=== PATIENT | male | born 1970 | race Caucasian/White ===

== ENCOUNTER 2025-02-04 14:26 | Inpatient (IN) ==
--- NOTE | 2025-02-04 14:29 | Emergency Department Note ---
Impression & Plan AMS (altered mental status), Wernicke encephalopathy ED Provider Note NAME: NOLVIA DE SANTIAGO AGE: 54 SEX: M : 1970 ARRIVES VIA: Ambulance INFORMANT: [Patient][, ] ED PROVIDER(S): [Uziel Torres MD] CHIEF COMPLAINT: Altered mental status, concern for alcohol withdrawal MEDICAL DECISION MAKING: Patient presents due to concern for intermittent confusion. Concerned about the possibility of Warnicke's encephalopathy. IV was established and blood work was obtained. Patient's blood work is grossly unremarkable. Did make a suggestion that patient stay in hospital for further treatment although the patient gives a reasonable reason for why this occurred today including he has been on numerous medications including sedatives and he was abruptly asked certain questions that he did not know the answer to. Patient is awake alert following commands. Known history of anxiety induced tremors. Blood work shows a normal white count hemoglobin of 13.3 with a normal platelet count kidney function is unremarkable. Ammonia negative [id number] sugar [address] head and chest x-ray are unremarkable. I did speak the on-call hospitalist service and the patient was admitted to medicine service. Discussion w/ other healthcare providers: ED case management Dr. Carbajal inpatient medicine service Prior /Outside records reviewed: I reviewed part of a primary care visit from September 2024 w/ Dr. Ni. Patient with a known history of anxiety depression anxiety related tremor hypertension retinal disorder and sleep disturbance. Differential diagnosis: Infection, dehydration, metabolic abnormality, hypo/hyperglycemia, electrolyte imbalance, anemia, UTI, pneumonia, thyroid dysfunction among others were considered. Diagnostics, as interpreted by me: ECG: Normal sinus rhythm, rate 68, normal intervals, normal axis no ST elevations. Cardiac monitoring: An order was placed for continuous cardiac monitoring. The monitor shows a rate of 69 with sinus rhythm. [Patient was placed on pulse oximetry] Medical decision rules: [none] Imaging studies: [I informally interpreted the patient's chest x-ray does not show obvious pneumonia with formal report to follow.] [] HPI: Patient presents from [facility] due to concerns for increasing tremors and confusion. There was concern about possible alcohol withdrawal. The patient states that he drank 2 beers on Thursday but has been at [facility] since Thursday. He denies any alcohol tobacco or drug use since the time that he presented there. He states that he did fall about 3 months ago but not during the time that he was at [facility]. Reportedly he was having some hallucinations seeing things for staff as well as for EMS and route. No sugar was checked prior to arrival. EMS reported that he was seeing some sort of woman sitting next to him and route. Patient reportedly does have a history of tremors. He states that his had them for about 10 or 15 years but may be worse within the last year. States that he does have a follow-up with Dr. Ni next week. PAST MEDICAL HISTORY: [See Below] PAST SURGICAL HISTORY: [See Below] SOCIAL HISTORY: [See Below] HOME MEDICATIONS: [See Below] ALLERGIES: [See Below] VITALS: [See Below] PHYSICAL EXAMINATION: GENERAL: NAD, non-toxic. EYE EXAM: Normal conjunctiva. PERRL, no anisocoria and EOM's grossly intact w/o pain. OROPHARYNX: Moist mucus membranes, grossly normal dentition. NECK: Trachea midline, no stridor. LUNGS: Clear to auscultation. Normal chest wall mechanics. HEART: NSR, no MRG. ABDOMEN: Abdomen soft, non-tender, no masses, no rebound or guarding. BACK: No CVA TTP. SKIN: No rashes and no bruising. UPPER EXTREMITIES: Upper extremities are grossly normal. LOWER EXTREMITIES: Grossly normal, no edema. NEURO EXAM: Awake and alert, follows commands, no obvious facial asymmetry, normal speech, moves all 4 extremities. Oriented to person place and time. Past Med/Surg History Problem List (Updated 02/05/25 @ 14:16 by Uziel Torres MD) Wernicke encephalopathy (Acute) ETOH abuse AMS (altered mental status) (Acute) Anxiety related tremor Retina disorder Heart rate fast Sleep disturbance Anxiety and depression Vitamin B12 deficiency Numbness and tingling of both lower extremities FH: factor V Leiden mutation Father Hyperglycemia Health care maintenance Allergic rhinitis due to pollen Allergic rhinitis due to animals Abnormal finding on thyroid function test (Chronic) EKG, abnormal (Acute) Essential hypertriglyceridemia (Chronic) Hypertension (Chronic) Medical History Neuralgia Arthralgia Neck pain Myalgia Travel sickness Exposure to bat without known bite Borderline results on serologic testing for Lyme disease Lyme disease Shortness of breath on exertion Tiredness Surgical History History of ankle surgery Family History Grandfather (Maternal) Prostate cancer Other Hyperlipidemia Skin cancer Denies family history of Ovarian cancer Myocardial infarction Breast cancer Colorectal cancer Social History Smoking Status: Never smoker Age Started Using Tobacco: 18; Age Quit Using Tobacco: 21; Second Hand Exposure: No; Do You Dip or Chew Tobacco: No; Hx Alcohol Use: Yes Alcohol type: beer and wine Hx Substance Use: Yes Last Used Substance: Unknown Substance Use Type Other:: mdma Preferred Language: Botswanan Communication Ability: Effective Visual Impairment: No Limitations Hearing Ability: Normal Corporate Travel Agent Required: No Beliefs That Will Affect Care: None marital status: Legally Current Living Situation: Alone Current Living Situation Comment: Spouse lives in [place] current occupational status: employed Feels Safe at Home: Yes Childhood Exposure to Second-Hand Smoke: Yes Physical Activity Frequency: Daily Seatbelt Use: always Assistive Devices: None Allergies Allergies Allergy/AdvReac Type Severity Reaction Status Date / Time diphenhydramine Allergy Verified 10/21/24 16:02 [From Madhu] Home Meds Home Medications Medication Instructions Recorded Confirmed mirtazapine 15 mg tablet 15 mg PO DAILY 02/04/25 02/04/25 propranolol 10 mg tablet 10 mg PO DAILY 02/04/25 02/04/25 Previous Rx's Medication Instructions Recorded labetalol 100 mg tablet 100 mg PO BID #60 tabs 12/26/24 Results & Data (ED) Vital Signs Vital Signs - 24 hr 02/04/25 14:33 02/04/25 14:36 02/04/25 14:36 Temperature 36.6 C Temperature Source Oral Pulse Rate 68 68 Pulse Rate from SpO2 Sensor Respiratory Rate 19 20 Respiratory Effort / Characteristics Non-Labored Spontaneous Respiratory Depth Normal Blood Pressure 107/76 107/76 Blood Pressure Mean 82 86 Pulse Oximetry 98 Oxygen Delivery Method Room Air Sepsis Recent Fever Within 48 Hours No Sepsis New/Unexplained Change in Mental Status Yes Sepsis Action Taken by Nursing No Action Required 02/04/25 14:55 02/04/25 15:00 02/04/25 15:00 Temperature Temperature Source Pulse Rate 72 66 Pulse Rate from SpO2 Sensor Respiratory Rate 15 Respiratory Effort / Characteristics Respiratory Depth Blood Pressure 97/68 L Blood Pressure Mean 76 Pulse Oximetry Oxygen Delivery Method Sepsis Recent Fever Within 48 Hours Sepsis New/Unexplained Change in Mental Status Sepsis Action Taken by Nursing 02/04/25 15:30 02/04/25 15:30 02/04/25 15:42 Temperature Temperature Source Pulse Rate 64 67 Pulse Rate from SpO2 Sensor 64 Respiratory Rate 20 21 Respiratory Effort / Characteristics Respiratory Depth Blood Pressure 112/80 Blood Pressure Mean 92 Pulse Oximetry 95 Oxygen Delivery Method Sepsis Recent Fever Within 48 Hours Sepsis New/Unexplained Change in Mental Status Sepsis Action Taken by Nursing 02/04/25 15:53 02/04/25 16:00 02/04/25 16:00 Temperature Temperature Source Pulse Rate Pulse Rate from SpO2 Sensor 56 L Respiratory Rate Respiratory Effort / Characteristics Respiratory Depth Blood Pressure 124/82 124/77 Blood Pressure Mean 86 91 Pulse Oximetry 100 Oxygen Delivery Method Sepsis Recent Fever Within 48 Hours Sepsis New/Unexplained Change in Mental Status Sepsis Action Taken by [facility] Medications Current Medication List: was personally reviewed by me Laboratory Data Attestation: I reviewed the patient's lab results. 02/05/25 05:30 02/05/25 05:30 Lab Results 02/04/25 02/04/25 02/04/25 Range/Units 14:34 14:36 15:54 WBC 6.14 (4.8-10.8) K/ul RBC 3.78 L (4.70-6.10) M/uL Hgb 13.3 L (14.0-18.0) g/dL Hct 37.0 L (42.0-52.0) % MCV 97.9 (80.0-100.0) fL MCH 35.2 H (25.0-34.0) pg MCHC 35.9 (32.0-36.0) g/dL RDW Std Deviation 45.0 (36.4-46.3) fL RDW Coeff of Miranda 12.6 (11.5-14.5) % Plt Count 241 (130-400) K/uL MPV 10.2 (9.4-12.4) fL Immature Gran % (Auto) 0.2 % Neut % (Auto) 68.1 % Lymph % (Auto) 16.9 % Craig % (Auto) 13.7 % Eos % (Auto) 0.8 % Baso % (Auto) 0.3 % Neut # (Auto) 4.18 (1.40-6.50) K/uL Lymph # (Auto) 1.04 L (1.20-3.40) K/uL Craig # (Auto) 0.84 H (0.11-0.59) K/uL Eos # (Auto) 0.05 (0.00-0.50) K/uL Baso # (Auto) 0.02 (0.00-0.20) K/uL Immature Gran # (Auto) 0.01 (0.01-0.20) K/uL PT 11.3 (9.0-12.0) Seconds INR 1.1 (0.9-1.1) Sodium 140 (136-145) mmol/L Potassium 3.7 (3.5-5.1) mmol/L Chloride 106 (98-107) mmol/L Carbon Dioxide 25 (21-32) mmol/L Anion Gap 9 (3-11) BUN 12 (6-23) mg/dl Creatinine 0.82 (0.6-1.4) mg/dl Est Cr Clr Drug Dosing 100.6 ml/min eGFR 103.10 BUN/Creatinine Ratio 14.6 (10-20) Glucose 119 H (70-99(Fasting)) mg/dl POC Glucose 125 H (70-99) mg/dl Calcium 9.4 (8.6-10.3) mg/dl Magnesium 1.8 (1.7-2.4) mg/dl Total Bilirubin 0.8 (0.2-1.0) mg/dl AST 27 (13-39) U/L ALT 31 (7-52) U/L Alkaline Phosphatase 44 (34-104) U/L Ammonia 29.0 (18-72) umol/L Troponin I High Sens 3.8 (0-20) pg/ml Total Protein 6.9 (6.0-8.3) gm/dl Albumin 3.9 (3.4-5.0) gm/dl Globulin 3.0 (2.5-4.0) gm/dl Albumin/Globulin Ratio 1.3 (0.9-2) TSH 1.881 (0.300-4.500) uIu/ml Ethyl Alcohol mg/dL < 10.0 (<10.0) mg/dl Administered Medications Heparin Sodium (Porcine) (Heparin Sod 5,000 Unit/0.5 Ml Vial) 5,000 units SQ Q8 LETY Stop: 03/06/25 21:59 Last Admin: 02/05/25 05:33 Dose: 5,000 units Documented By: Admin: 02/04/25 21:27 Dose: 5,000 units Documented By: GH Folic Acid 1 mg/ Syringe 10 mls @ 5 mls/min IV QAM LETY Stop: 03/07/25 08:59 Last Admin: 02/05/25 08:44 Dose: 5 mls/min Documented By: JEAN Sodium Chloride (Nss) 1,000 mls @ 80 mls/hr IV .[id number] [facility] Stop: 02/07/25 16:59 Last Admin: 02/05/25 05:37 Dose: 80 mls/hr Documented By: Infusion: 02/05/25 05:37 Dose: Infused Documented By: Admin: 02/04/25 19:36 Dose: 80 mls/hr Documented By: vgr Thiamine HCl 500 mg/ Sodium (Chloride) 55 mls @ 210 mls/hr IV Q8H [facility] Stop: 02/06/25 17:16 Last Infusion: 02/05/25 09:12 Dose: Infused Documented By: Admin: 02/05/25 08:44 Dose: 210 mls/hr Documented By: Infusion: 02/05/25 01:21 Dose: Infused Documented By: Admin: 02/05/25 00:54 Dose: 210 mls/hr Documented By: GH Labetalol HCl (Labetalol Hcl 100 Mg Tab) 100 mg PO BID [facility] Stop: 03/06/25 20:59 Last Admin: 02/05/25 08:43 Dose: 100 mg Documented By: Admin: 02/04/25 22:50 Dose: 100 mg Documented By: GH Mirtazapine (Mirtazapine Tab 15 Mg Tab) 15 mg PO DAILY [facility] Stop: 03/07/25 08:59 Last Admin: 02/05/25 08:43 Dose: 15 mg Documented By: JEAN Discontinued Medications Diazepam (Diazepam Inj 5 Mg/Ml 2 Ml Carp) 10 mg IV Q1H PRN PRN Reason: AWSS 6,7,8,9,10+ Stop: 02/04/25 23:02 Last Admin: 02/04/25 22:45 Dose: 10 mg Documented By: SARAY Sodium Chloride (Nss) 500 mls @ 999 mls/hr IV .Q31M LETY Stop: 02/04/25 15:15 Last Infusion: 02/04/25 16:10 Dose: Infused Documented By: Admin: 02/04/25 14:52 Dose: 999 mls/hr Documented By: ESTHER Folic Acid 1 mg/ Syringe 10 mls @ 5 mls/min IV NOW STA Stop: 02/04/25 16:29 Last Admin: 02/04/25 17:22 Dose: 5 mls/min Documented By: ESTHER Thiamine HCl 500 mg/ Sodium (Chloride) 55 mls @ 210 mls/hr IV NOW STA Stop: 02/04/25 16:43 Last Infusion: 02/04/25 18:14 Dose: Infused Documented By: Admin: 02/04/25 17:22 Dose: 210 mls/hr Documented By: ESTHER Olanzapine (Olanzapine 10 Mg/2.1 Ml Sdv) 2.5 mg IM NOW STA Stop: 02/05/25 00:25 Last Admin: 02/05/25 00:37 Dose: 2.5 mg Documented By: SARAY Olanzapine (Olanzapine 10 Mg/2.1 Ml Sdv) 2.5 mg IM NOW STA Stop: 02/05/25 00:41 Last Admin: 02/05/25 00:51 Dose: 2.5 mg Documented By: SARAY Phenobarbital Sodium (Phenobarbital Sodium 130 Mg/Ml Vial) 195 mg 3.2 mg/kg (195 mg) IM ONE ONE Stop: 02/04/25 23:36 Last Admin: 02/04/25 23:38 Dose: 195 mg Documented By: SARAY Phenobarbital Sodium (Phenobarbital Sodium 130 Mg/Ml Vial) 195 mg 2.4 mg/kg (195 mg) IM ONE ONE Stop: 02/05/25 02:36 Last Admin: 02/05/25 02:35 Dose: 195 mg Documented By: SARAY Phenobarbital Sodium (Phenobarbital Sodium 130 Mg/Ml Vial) 195 mg 2.4 mg/kg (195 mg) IM ONE ONE Stop: 02/05/25 05:36 Last Admin: 02/05/25 05:33 Dose: 195 mg Documented By: SARAY Imaging Data Radiologist's Impression: Head CT 02/04/25 14:42 Clinical History: Tremors and confusion Technique: Axial computed tomography images were obtained of the brain without intravenous contrast. Findings: There is diffuse cerebral atrophy, within expected limits for the patient's age. Areas of decreased attenuation are seen within the periventricular white matter, likely representing chronic small vessel ischemic disease. There is no definite sign of acute or old infarction. No intracranial hemorrhage is evident. No definite mass lesion is seen on this noncontrast examination. There is no midline shift or other form of herniation. No hydrocephalus is seen. No fracture is identified. The orbits and the visualized paranasal sinuses appear unremarkable. The mastoid air cells appear clear. Impression: 1. Cerebral atrophy and chronic small vessel ischemic disease 2. Otherwise unremarkable noncontrast CT of the brain Electronically signed by Romaine Watt 02-04-2025 3:38 PM Chest X-Ray 02/04/25 14:43 Clinical History: Weakness Technique: A frontal view of the chest was obtained Findings: There are no confluent pulmonary infiltrates. The heart size is within normal limits. No pleural effusion or pneumothorax is seen. There is no definite pulmonary nodule. No fracture is noted. No foreign body is seen Impression: No active disease Electronically signed by Romaine Watt 02-04-2025 3:42 PM Discharge Plan Visit Data Chief Complaint: Alcohol Withdrawal Stated Complaint: Alcohol Withdrawal ED Provider: Uziel Torres Discharge Problem: AMS (altered mental status), Wernicke encephalopathy Patient Disposition: Admitted As Inpatient Condition: Good Discharge Instructions Interventions: ED Discharge Assessment Last Done: 02/04/25 20:05 Discharge Problem: AMS (altered mental status) Qualifiers: Altered mental status type: disorientation Qualified Code(s): R41.0 - Disorientation, unspecified
[2025-02-04] MEDS: SODIUM CHLORIDE 0.9% 500 ML IV SCH (14:52)
[2025-02-04 15:24] LABS: Hematocrit (blood only) 37.0 % (42.0-52.0); Hemoglobin 13.3 g/dL (14.0-18.0); Immature Granulocytes # (auto) 0.01 K/uL (0.01-0.20); Immature Granulocytes % (auto) 0.2 %; Mean Corpuscular Hemoglobin 35.2 pg (25.0-34.0); Mean Corpuscular Volume 97.9 fL (80.0-100.0); Platelet Count 241 K/uL (130-400); RDW Standard Deviation 45.0 fL (36.4-46.3); Red Blood Count 3.78 M/uL (4.70-6.10); White Blood Count 6.14 K/ul (4.8-10.8)
--- NOTE | 2025-02-04 15:39 | CT Scan Report ---
Clinical History: Tremors and confusion Technique: Axial computed tomography images were obtained of the brain without intravenous contrast. Findings: There is diffuse cerebral atrophy, within expected limits for the patient's age. Areas of decreased attenuation are seen within the periventricular white matter, likely representing chronic small vessel ischemic disease. There is no definite sign of acute or old infarction. No intracranial hemorrhage is evident. No definite mass lesion is seen on this noncontrast examination. There is no midline shift or other form of herniation. No hydrocephalus is seen. No fracture is identified. The orbits and the visualized paranasal sinuses appear unremarkable. The mastoid air cells appear clear. Impression: 1. Cerebral atrophy and chronic small vessel ischemic disease 2. Otherwise unremarkable noncontrast CT of the brain Electronically signed by Romaine Watt 02-04-2025 3:38 PM
--- NOTE | 2025-02-04 15:42 | XRay Report ---
Clinical History: Weakness Technique: A frontal view of the chest was obtained Findings: There are no confluent pulmonary infiltrates. The heart size is within normal limits. No pleural effusion or pneumothorax is seen. There is no definite pulmonary nodule. No fracture is noted. No foreign body is seen Impression: No active disease Electronically signed by Romaine Watt 02-04-2025 3:42 PM
[2025-02-04 15:45] LABS: Alanine Aminotransferase 31.0 U/L (7-52); Albumin Globulin Ratio 1.3 (0.9-2); Albumin Level 3.9 gm/dl (3.4-5.0); Alkaline Phosphatase 44.0 U/L (34-104); Anion Gap 9.0 (3-11); Bilirubin,Total 0.8 mg/dl (0.2-1.0); Blood Urea Nitrogen 12.0 mg/dl (6-23); Calcium 9.4 mg/dl (8.6-10.3); Carbon Dioxide 25.0 mmol/L (21-32); Chloride 106.0 mmol/L (98-107); Creatinine Clr Calc Pharmacy 100.6 ml/min; Globulin 3.0 gm/dl (2.5-4.0); Glucose 119.0 mg/dl (70-99(Fasting)); Magnesium 1.8 mg/dl (1.7-2.4); Potassium 3.7 mmol/L (3.5-5.1); Sodium 140.0 mmol/L (136-145); Total Protein 6.9 gm/dl (6.0-8.3)
[2025-02-04 16:02] LABS: Thyroid Stimulating Hormone 1.881 uIu/ml (0.300-4.500)
[2025-02-04 16:14] LABS: Appearance Urine Clear (Clear); Glucose Urine UA Negative (Negative)
[2025-02-04 16:23] LABS: INR 1.1 (0.9-1.1); Prothrombin Time 11.3 Seconds (9.0-12.0)
[2025-02-04] MEDS ORDERED: ONDANSETRON INJ 2 MG/ML 2 ML VIAL IV PRN (17:00)
[2025-02-04 17:01] LABS: Amphetamines+Metham, Urine Neg (Neg); MDMA (Ecstacy), Urine Pos (Neg); Marijuana, Urine Neg (Neg)
[2025-02-04] MEDS: FOLIC ACID 1 MG in SYRINGE 9.8 ML IV STA (17:22)
[2025-02-04] MEDS: THIAMINE HCL 500 MG in SODIUM CHLORIDE 0.9% 50 ML IV STA (17:22)
--- NOTE | 2025-02-04 18:25 | History & Physical Report ---
Date of Service February 04, 2025 Assessment & Plan (1) AMS (altered mental status): Plan: -pt states he took additonal anxiety medications today and now feels back to baseline -requesting return to [facility] -awaiting acceptance if not tonight, will be admitted -treatment for possible Werneke's encephalopathy -IVF -thaimine 500mg IV TID -folic acid -PT/OT (2) ETOH abuse: Plan: -pt states last drink on Thursday -From [facility], states he's been out of withdrawal since -excessive tremors make it difficult to confirm if he is not in acute withdrawal at this time -will keep on CIWA overnight and d/c protocol in am -valium prn (3) Anxiety and depression: Plan: -mirtazapine (4) Hypertension: Plan: -labetalol Plan Heparin SQ for DVT px History of Present Illness Chief Complaint: AMS Primary Care Provider: NO PCP Pt is a 54 y/o male with PMH of etoh abuse, anxiety, HTN, presents from [facility] rehab due to increased tremors and confusion. Pt states he took additional doses of his anixety medications this am which caused him to become confused. Pt was noted by staff to be having visual hallucinations. Pt states he has had upper extremity tremors for about 10 or 15 years but may be worse within the last year. States that he does have a follow-up with Dr. Ni next week. In the ER his CT head was negative. Pt states his last drink was on Thursday, and he has been out of withdrawal since Thursday. Pt requesting transfer back to [facility] if he will be accepted. [facility] case management awaiting call back to confirm acceptance. 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 Allergies Allergy/AdvReac Type Severity Reaction Status Date / Time diphenhydramine Allergy Verified 10/21/24 16:02 [From Benadryl] Home Medications Medication Instructions Recorded Confirmed Type labetalol 100 mg tablet 100 mg PO BID #60 tabs 12/26/24 02/04/25 Rx mirtazapine 15 mg tablet 15 mg PO DAILY 02/04/25 02/04/25 History propranolol 10 mg tablet 10 mg PO DAILY 02/04/25 02/04/25 History Past Med/Surg History Problem List (Updated 02/04/25 @ 18:21 by Timmy Rebolledo MD) ETOH abuse AMS (altered mental status) Anxiety related tremor Retina disorder Heart rate fast Sleep disturbance Anxiety and depression Vitamin B12 deficiency Numbness and tingling of both lower extremities FH: factor V Leiden mutation Father Hyperglycemia Health care maintenance Allergic rhinitis due to pollen Allergic rhinitis due to animals Abnormal finding on thyroid function test (Chronic) EKG, abnormal (Acute) Essential hypertriglyceridemia (Chronic) Hypertension (Chronic) Medical History (Updated 02/04/25 @ 18:21 by Timmy Rebolledo MD) Neuralgia Arthralgia Neck pain Myalgia Travel sickness Exposure to bat without known bite Borderline results on serologic testing for Lyme disease Lyme disease Shortness of breath on exertion Tiredness Surgical History History of ankle surgery Family History Grandfather (Maternal) Prostate cancer Other Hyperlipidemia Skin cancer Denies family history of Ovarian cancer Myocardial infarction Breast cancer Colorectal cancer Social History Smoking Status: Unknown if ever smoked Age Started Using Tobacco: 18; Age Quit Using Tobacco: 21; Second Hand Exposure: No; Do You Dip or Chew Tobacco: No; Hx Alcohol Use: Yes (social) Alcohol type: beer, wine and hard liquor Hx Substance Use: No Preferred Language: Latvian Communication Ability: Effective Visual Impairment: No Limitations Hearing Ability: Normal Aging Department Supervisor Required: No marital status: Legally Current Living Situation: Alone current occupational status: employed Feels Safe at Home: Yes Childhood Exposure to Second-Hand Smoke: Yes Physical Activity Frequency: Daily Seatbelt Use: always Review of Systems Review of Systems: CONST: Negative for fever, body aches and chills. HENT: Negative for neck pain/stiffness, headache, congestion, sore throat, swelling. EYES: Negative for discharge/pain or vision changes. RESP: Negative for cough/hemoptysis and shortness of breath. CV: Negative chest pain, difficulty breathing, palpitations. ABD: Negative pain, nausea, vomiting. : Negative increase frequency, dysuria, blood in urine or stool. MUSC: Negative for muscle aches, edema. SKIN: Negative rash, lesions/sores. NEURO: Negative headache, dizziness, weakness +tremor. Physical Exam Physical Exam: GENERAL APPEARANCE NAD, activity normal for age, well developed/ well nourished, no cyanosis, pallor, or diaphoresis. EYES lids/conjunctiva normal. EARS/NOSE/THROAT Mucous membranes moist, nares normal, lips/teeth normal uvula midline without oral pharyngeal erythema, exudate or swelling TMs normal bilaterally. No lymphangitis/lymphedema. HEAD/NECK normocephalic atraumatic, no facial trauma, neck is supple. RESPIRATORY respiratory effort normal, speaks in full sentences, no tripod position, no accessory muscle use. Lungs clear to auscultation without rhonchi, wheezes, rales CARDIAC Regular rate and rhythm, no edema. ABDOMINAL Soft, ND/NT. No evidence of fluid wave. No pulsatile masses on exam, rebound tenderness, Gonzalez sign or pain over Mcburney's point. MUSCLES/EXTREMITIES No abnormal range of motion, no swelling. SKIN Warm, pink and dry. No rashes, dermatoses, petechiae or lesions. NEUROLOGICAL Speech is clear and appropriate. Normal level of consciousness. Gait and coordination are normal. 5/5 strength in all extremities. PSYCH Normal mood and affect. Judgement/competence is appropriate Results & Data Results & Data Vital Signs (Past 12 Hours) Vital Signs Temp Pulse Resp BP Pulse Ox O2 Del Method 02/04/25 16:00 124/77 02/04/25 16:00 100 02/04/25 15:53 124/82 02/04/25 15:42 67 21 02/04/25 15:30 64 20 95 02/04/25 15:30 112/80 02/04/25 15:00 66 15 02/04/25 15:00 97/68 L 02/04/25 14:55 72 02/04/25 14:36 68 20 02/04/25 14:36 36.6 C 68 19 107/76 98 Room Air 02/04/25 14:33 107/76 PG Care Time/CCT Total # of Minutes Spent Total Time Spent with Patient: Total time spent is greater than 50% in coordination of care (as documented) at patient's floor/unit and/or counseling patient: Coding Level of Care Code 21412 INT INP/OBS CARE 2/55MIN Diagnoses AMS (altered mental status) R41.82 ETOH abuse F10.10 Anxiety and depression F41.9; F32.A Hypertension I10
[2025-02-04] MEDS: SODIUM CHLORIDE 0.9% 1,000 ML IV SCH (19:36)
[2025-02-04] MEDS: HEPARIN SOD 5,000 UNIT/0.5 ML VIAL SQ SCH (21:27)
[2025-02-04] MEDS: LABETALOL HCL 100 MG TAB PO SCH (22:50)
[2025-02-05] MEDS: THIAMINE HCL 500 MG in SODIUM CHLORIDE 0.9% 50 ML IV SCH (00:54)
[2025-02-05 06:14] LABS: Hematocrit (blood only) 35.4 % (42.0-52.0); Hemoglobin 12.3 g/dL (14.0-18.0); Immature Granulocytes # (auto) 0.01 K/uL (0.01-0.20); Immature Granulocytes % (auto) 0.2 %; Mean Corpuscular Hemoglobin 34.2 pg (25.0-34.0); Mean Corpuscular Volume 98.3 fL (80.0-100.0); Platelet Count 219 K/uL (130-400); RDW Standard Deviation 44.7 fL (36.4-46.3); Red Blood Count 3.60 M/uL (4.70-6.10); White Blood Count 4.41 K/ul (4.8-10.8)
[2025-02-05 06:42] LABS: Alanine Aminotransferase 25.0 U/L (7-52); Albumin Level 3.8 gm/dl (3.4-5.0); Alkaline Phosphatase 37.0 U/L (34-104); Anion Gap 8.0 (3-11); Bilirubin,Total 0.8 mg/dl (0.2-1.0); Blood Urea Nitrogen 11.0 mg/dl (6-23); Calcium 8.9 mg/dl (8.6-10.3); Carbon Dioxide 25.0 mmol/L (21-32); Chloride 109.0 mmol/L (98-107); Creatinine Clr Calc Pharmacy 104.4 ml/min; Glucose 84.0 mg/dl (70-99(Fasting)); Potassium 3.7 mmol/L (3.5-5.1); Sodium 142.0 mmol/L (136-145); Total Protein 6.1 gm/dl (6.0-8.3)
[2025-02-05] MEDS: MIRTAZAPINE TAB 15 MG TAB PO SCH (08:43)
[2025-02-05] MEDS: FOLIC ACID 1 MG in SYRINGE 9.8 ML IV SCH (08:44)
--- NOTE | 2025-02-05 09:34 | Hospitalist Progress Note ---
Date of Service February 05, 2025 Assessment & Plan (1) AMS (altered mental status): Plan: -pt states he took additional anxiety medications today and now feels back to baseline -treatment for possible Werneke's encephalopathy -IVF -thiamine 500mg IV TID -folic acid -PT/OT -valium prn for behavioral agitation -pt will need to be in more stable mental state to return to [facility] (2) ETOH abuse: Plan: -pt states last drink on Thursday -From [facility], states he's been out of withdrawal since -excessive tremors make it difficult to confirm if he is not in acute withdrawal at this time -will keep on CIWA -valium prn for agitiation (3) Anxiety and depression: Plan: -mirtazapine (4) Hypertension: Plan: -labetalol Plan Heparin SQ for DVT px Admission and Anticipated Discharge Date Admission Date: February 04, 2025 Subjective Pt had episodes of agitation last night requiring phenobarbital and 1:1. Appears confused this am. Review of Systems Review of Systems: CONST: Negative for fever, body aches and chills. HENT: Negative for neck pain/stiffness, headache, congestion, sore throat, swelling. EYES: Negative for discharge/pain or vision changes. RESP: Negative for cough/hemoptysis and shortness of breath. CV: Negative chest pain, difficulty breathing, palpitations. ABD: Negative pain, nausea, vomiting. : Negative increase frequency, dysuria, blood in urine or stool. MUSC: Negative for muscle aches, edema. SKIN: Negative rash, lesions/sores. NEURO: Negative headache, dizziness, weakness +tremor. Physical Exam Physical Exam: GENERAL APPEARANCE NAD, activity normal for age, well developed/ well nourished, no cyanosis, pallor, or diaphoresis. EYES lids/conjunctiva normal. EARS/NOSE/THROAT Mucous membranes moist, nares normal, lips/teeth normal uvula midline without oral pharyngeal erythema, exudate or swelling TMs normal bilaterally. No lymphangitis/lymphedema. HEAD/NECK normocephalic atraumatic, no facial trauma, neck is supple. RESPIRATORY respiratory effort normal, speaks in full sentences, no tripod position, no accessory muscle use. Lungs clear to auscultation without rhonchi, wheezes, rales CARDIAC Regular rate and rhythm, no edema. ABDOMINAL Soft, ND/NT. No evidence of fluid wave. No pulsatile masses on exam, rebound tenderness, Gonzalez sign or pain over Mcburney's point. MUSCLES/EXTREMITIES No abnormal range of motion, no swelling. SKIN Warm, pink and dry. No rashes, dermatoses, petechiae or lesions. NEUROLOGICAL Speech is clear and appropriate. Normal level of consciousness. Gait and coordination are normal. 5/5 strength in all extremities. PSYCH Normal mood and affect. Judgement/competence is appropriate Results & Data Results & Data Vital Signs (Past 12 Hours) Vital Signs Temp Pulse Pulse Resp BP BP BP 02/05/25 08:46 36.4 C L 69 18 119/81 02/05/25 05:33 70 18 127/89 02/05/25 05:27 80 16 127/89 02/05/25 05:00 61 14 02/05/25 04:00 64 17 02/05/25 03:00 61 16 02/05/25 02:35 74 18 113/70 02/05/25 02:31 36.4 C 65 18 113/70 02/05/25 02:00 65 18 02/05/25 01:00 72 16 02/05/25 00:20 84 02/04/25 23:38 65 18 125/74 02/04/25 23:20 75 18 137/71 02/04/25 22:38 84 17 125/74 02/04/25 22:12 63 Pulse Ox O2 Del Method 02/05/25 08:46 99 Room Air 02/05/25 05:33 02/05/25 05:27 96 Room Air 02/05/25 05:00 02/05/25 04:00 Room Air 02/05/25 03:00 Room Air 02/05/25 02:35 02/05/25 02:31 97 Room Air 02/05/25 02:00 02/05/25 01:00 02/05/25 00:20 02/04/25 23:38 02/04/25 23:20 02/04/25 22:38 96 Room Air 02/04/25 22:12 PG Care Time/CCT Total # of Minutes Spent Total Time Spent with Patient: Total time spent is greater than 50% in coordination of care (as documented) at patient's floor/unit and/or counseling patient: Coding Level of Care Code 22363 SUB INP/OBS CARE 235MIN Diagnoses AMS (altered mental status) R41.82 ETOH abuse F10.10 Anxiety and depression F41.9; F32.A Hypertension I10
--- NOTE | 2025-02-05 14:42 | Neurology Consultation ---
Date of Consultation February 05, 2025 Assessment & Plan (1) AMS (altered mental status): Confusion in the setting of anxiety and alcohol usage. No clear findings to suggest encephalopathy or Warnicke's encephalopathy given that patient does not have nystagmus or ataxia or ophthalmoplegia. Mental status changes were accompanied by hallucinations/disorientation inability to walk and there was concern also of speech disturbance. (2) Anxiety related tremor: Tremors likely patient has an underlying essential tremor which is now enhanced given stressors currently/anxiety symptoms (3) ETOH abuse: Ethanol abuse. Patient very receptive to receiving rehabilitation. Looking forward to resuming his rehab program. Plan - Because of our concerns of hallucinations confusion inability to walk and tremors recommend obtaining an MRI of the brain with and without contrast while inpatient here at [facility]. - Suggest increasing propranolol to 40 mg daily from 10 mg daily. This will give more benefit in terms of treatment for anxiety and also tremors. - Continue thiamine 100 mg daily should be continued as an outpatient for at least 1 month then decrease to 50 mg daily - Patient is encouraged to continue program for drug and alcohol. He appears to be fairly motivated in pursuing alcohol free life. - Follow-up with neurology as an outpatient. He has an appointment already set up with our [facility] neurology. - Suggest obtaining formal neuropsychological testing to be done on an outpatient basis. This could be entertained once he sees neurology as an outpatient. Thank you for the telehealth consultation. Please contact me with any questions or concerns via TT. Diego Calero MD Neurology Total time spent on this telehealth consult was 154 minutes of these 114 minutes was spent on the video telehealth/[employer] call. The rest 40 minutes was spent reviewing the medical chart/imaging and also preparing this documentation. Telehealth Consultation Telehealth Information Telehealth Information: I performed this visit using a real-time telehealth connection between my location and the patients originating location ([facility]). After connecting through interactive tele-video, patient was identified by name and date of and/or wristband check.Patient (or authorized healthcare assistance representative) was informed that this was a telemedicine visit and it was being conducted confidentially over secure lines. My office door was closed and no one else was present in the room with me.Patient (or authorized healthcare assistance representative) provided consent to proceed with the visit, expressed an understanding of privacy and security of the telemedicine visit, and gave pe rmission to have a hospital assistance representative in the room in order to assist with the visit and to conduct portions of the visit, as needed. I informed the patient (or authorized healthcare assistance representative) that I reviewed their record and presented the opportunity for them to ask any questions regarding the visit today. The patient agreed to participate. 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 History was provided by patient himself and also . Has been noted to have issues for up to 10 years consistent with anxiety tremors but says that for the last year or year and a half has been noticing worsening. Tremors are described full body tremors mostly with activity/intentional tremors they are provoked with certain activities like lifting up a couple water or water bottle. Using a screwdriver he might notice that it is most pronounced. He describes episodes that are more pronounced with tremors he states that these are triggered by stressors which he has been currently going through. He does have a history of alcohol usage and he drinks roughly about a bottle of wine on a daily basis for many many years. He is currently undergoing a drug and alcohol program at [facility] which he feels that has been helpful so far and he is connected with this program so far. At times with his symptoms he is unable to walk he feels that his gait is wobbly denies any neuropathy symptoms does feel that that he has some hallucinations and feeling disoriented at times. He has an appointment to see neurology here at [facility] in the near future. Other triggers of tremors include lack of sleep internal stress. At times he feels that he is having a panic attack which worsens his symptoms. He did get imaging here to form a CT scan of the brain which showed age- appropriate loss of cerebral volume and also some small vessel disease bilaterally and no acute abnormalities. Since being here he has been on thiamine 100 mg daily and continued on propranolol 10 mg and labetalol. He is also on folate. He has never had an MRI of the brain performed the time before. Allergies Allergy/AdvReac Type Severity Reaction Status Date / Time diphenhydramine Allergy Verified 10/21/24 16:02 [From Benadryl] Home Medications Medication Instructions Recorded Confirmed Type labetalol 100 mg tablet 100 mg PO BID #60 tabs 12/26/24 02/04/25 Rx mirtazapine 15 mg tablet 15 mg PO DAILY 02/04/25 02/04/25 History propranolol 10 mg tablet 10 mg PO DAILY 02/04/25 02/04/25 History Patient History Medical History Neuralgia Arthralgia Neck pain Myalgia Travel sickness Exposure to bat without known bite Borderline results on serologic testing for Lyme disease Lyme disease Shortness of breath on exertion Tiredness Surgical History History of ankle surgery Family History Grandfather (Maternal) Prostate cancer Other Hyperlipidemia Skin cancer Denies family history of Ovarian cancer Myocardial infarction Breast cancer Colorectal cancer Social History Smoking Status: Never smoker Age Started Using Tobacco: 18; Age Quit Using Tobacco: 21; Second Hand Exposure: No; Do You Dip or Chew Tobacco: No; Hx Alcohol Use: Yes Alcohol type: beer and wine Hx Substance Use: Yes Last Used Substance: Unknown Substance Use Type Other:: mdma Preferred Language: Palauan Communication Ability: Effective Visual Impairment: No Limitations Hearing Ability: Normal Watch Assembler Required: No Beliefs That Will Affect Care: None marital status: Legally Current Living Situation: Alone Current Living Situation Comment: Spouse lives in [place] current occupational status: employed Feels Safe at Home: Yes Childhood Exposure to Second-Hand Smoke: Yes Physical Activity Frequency: Daily Seatbelt Use: always Assistive Devices: None Review of Systems Other than what is explained in the HPI he denies any other complaints he does not denies any numbness or tingling he does admit to walking sensation on "pads or padding". Physical Exam Alert and oriented x 3 his smile was symmetrical extraocular movements were full there was no nystagmus noted upon examination there was tremor noted mostly on the left with upward movement of his arms. Nose to screen showed no dysmetria on coordination testing. There was no drift noted. I did not perceive any weakness with eye closure. No other abnormal movements noted other than tremors. There was no head tremor/postural tremor noted. NIH scale was 0. Fund of knowledge is adequate normal he is able to relate to his symptoms without any difficulty with speech. He was noted to have some word finding difficulty on examination and also had to recall active thoughts and certain intervals. Repetition was normal comprehension was normal abstract thinking was normal. I did not perceive any aphasia or slurring of the speech. He was able to read all the sentences on the stroke cards. His affect and mood are sound. He was able to look at the screen and be very conversant throughout the whole interaction. was available to fill it and answer some of the questions. He was very polite and very humorous at times. Examination was performed while he was sitting in his bed. Results & Data Vital Signs (Past 12 Hours) Vital Signs Temp Pulse Pulse Resp BP BP Pulse Ox 02/05/25 13:43 79 02/05/25 11:13 36.4 C L 65 19 137/88 99 02/05/25 08:46 36.4 C L 69 18 119/81 99 02/05/25 08:36 60 02/05/25 05:33 70 18 127/89 02/05/25 05:27 80 16 127/89 96 02/05/25 05:00 61 14 02/05/25 04:00 64 17 02/05/25 03:00 61 16 02/05/25 02:35 74 18 113/70 02/05/25 02:31 36.4 C 65 18 113/70 97 O2 Del Method 02/05/25 13:43 02/05/25 11:13 Room Air 02/05/25 08:46 Room Air 02/05/25 08:36 02/05/25 05:33 02/05/25 05:27 Room Air 02/05/25 05:00 02/05/25 04:00 Room Air 02/05/25 03:00 Room Air 02/05/25 02:35 02/05/25 02:31 Room Air Laboratory Results Laboratory findings were reviewed Diagnostic Findings CT scan of the head without contrast was reviewed and showed some age- appropriate cerebral volume loss. Some small vessel disease noted. Medications Administered Reviewed on chart. (1) AMS (altered mental status) Altered mental status type: unspecified Qualified Code(s): R41.82 - Altered mental status, unspecified
[2025-02-05] MEDS: GADOBUTROL 30ML VIAL IV ONE (22:28)
[2025-02-06] MEDS: MELATONIN 3 MG TAB PO PRN (00:06)
[2025-02-06] MEDS: ACETAMINOPHEN 325 MG TAB PO PRN (00:07)
--- NOTE | 2025-02-06 01:23 | Magnetic Resonance Report ---
Exam(s): MRI HEAD W/WO Contrast EXAM: MR Head Without and With Intravenous Contrast CLINICAL HISTORY: Reason for exam: AMS. TECHNIQUE: Magnetic resonance images of the head/brain without and with intravenous contrast in multiple planes. CONTRAST: Contrast must be dictated COMPARISON: Prior head CT from February 04, 2025. FINDINGS: Brain: Minimal nonspecific white matter changes.. No mass. No hemorrhage. No acute infarct. The flow voids at the base of the brain are intact. No evidence of enhancement. Ventricles: Mild ventriculomegaly. Bones/joints: Unremarkable. No acute fracture. Sinuses: Chronic ethmoid and maxillary sinusitis. No acute sinusitis. Mastoid air cells: Unremarkable as visualized. No mastoid effusion. Orbits: Unremarkable as visualized. IMPRESSION: No evidence of acute intracranial pathology. Electronically signed by: Kira Hussein MD 02/06/25 01:22 AM
--- NOTE | 2025-02-06 06:16 | Electrocardiogram Report ---
Test Reason : Blood Pressure : */* mmHG Vent. Rate : 68 BPM Atrial Rate : 68 BPM P-R Int : 152 ms QRS Dur : 90 ms QT Int : 420 ms P-R-T Axes : 22 4 22 degrees QTcB Int : 446 ms Normal sinus rhythm Normal ECG When compared with ECG of 02-Jun-2006 06:52, No significant change was found Confirmed by Tony Desai ([id number]) on 02/06/2025 6:15:53 AM Referred By: REFERRED SELF Confirmed By: Tony Desai
[2025-02-06 07:35] VITALS: RESP 20
[2025-02-06] MEDS ORDERED: PROPRANOLOL HCL 10 MG TAB PO SCH (09:00)
--- NOTE | 2025-02-06 09:02 | Neurology Progress Note ---
Date of Service February 06, 2025 Assessment & Plan (1) Wernicke encephalopathy: (2) Tremor: (3) ETOH abuse: Plan Patient has a history of significant alcohol abuse who came to the emergency room after voluntarily going to [facility] week ago, with acute confusion and visual hallucinations. He was felt to be in withdrawal. He is mental status changes and hallucinations have completely resolved and he is back to baseline. The patient has a significant tremor which is improved since admission as well. This tremor is an essential tremor and there is no evidence of resting tremor, bradykinesia, root rigidity, or Parkinson gait (therefore no signs of parkinsonism). MRI of the brain was unremarkable although the slight generalized atrophy of the be related to his alcohol use. Currently he has no focal findings, meningeal signs, or encephalopathy Recommendations: 1. Check B12 and Lyme Western blot (patient has a history of Lyme in the past) 2. Continue thiamine and folate. 3. Propranolol is my drug of choice for essential tremor and other beta- blockers do not help tremor as much. 4. Therefore, consider discontinuing immediate release propranolol and initiate propranolol ER (24-hour release) once daily in the morning. 5. Can lower the labetalol and, hopefully, over time, taper off labetalol and increase long-acting propranolol to treat both essential tremor and hypertension 6. Apparently, the patient already has an appointment with outpatient neurology in mid February. Keep this appointment. 7. Obviously, avoid all alcohol. Overall, I spent a total of 70 minutes with this case including review of records, review of MRI films, direct evaluation of the patient, report generation, and discussion of the case with the patient, (present in the room), and Dr. Rebolledo, including differential diagnosis and treatment options. Admission and Anticipated Discharge Date Admission Date: February 04, 2025 Subjective Patient is feeling much better today. He has had no visual or other hallucinations yesterday or this morning. He denies headaches, dizziness, vision changes, numbness, or weakness. He has tremor but feels this is back to his baseline. The patient started having tremor in his hands about 10 years ago. The right equals the left. It was much worse with full body tremor prior to admission but it is back down to his usual baseline currently Nursing reports no new issues. Blood pressure is 140/76 with a pulse in the 70s. He is afebrile. MRI of the brain with and without contrast February 05 showed no acute changes. There were no new or old strokes and only minimal old small vessel ischemic disease. There was mild generalized atrophy noted as well. Contrast produced no enhancement. I reviewed these films Results & Data Vital Signs (Past 12 Hours) Vital Signs Temp Pulse Pulse Resp BP BP Pulse Ox 02/06/25 07:32 36.5 C 72 20 140/76 97 02/06/25 07:10 63 02/06/25 00:10 36.7 C 70 16 121/81 99 O2 Del Method 02/06/25 07:32 Room Air 02/06/25 07:10 02/06/25 00:10 Room Air Exam (Neuro) Physical Exam: He is awake and alert. Speech is without obvious aphasia or dysarthria. Although he is "talkative" he does not have pressured speech or flight of ideas. He is pleasant, calm and cooperative with good mood and affect. Extraocular eye muscles are intact without nystagmus. He has no facial droop. Tongue is midline. There is no masklike face. Neck is supple. Coordination is normal in the arms without ataxia. There is a very mild postural tremor bilaterally but no cyndee resting tremor. He has a mild action tremor bilaterally. Gait is narrow-based and stable with good turns. Motor strength is 5/5 diffusely in all major muscle groups in arms and legs both proximally distally. Reflexes are 1/4 in all 4 limbs including biceps, triceps, brachial radialis, quadriceps, and Achilles tendons bilaterally. Toes are downgoing to plantar stimulation bilaterally. He has no rigidity or spasticity. He has no myoclonic jerks or other abnormal involuntary movements. PG Care Time/CCT Total # of Minutes Spent Total Time Spent with Patient: Total time spent is greater than 50% in coordination of care (as documented) at patient's floor/unit and/or counseling patient: Coding Level of Care Code 11091 SUB INP/OBS CARE 3/50MIN Diagnoses Wernicke encephalopathy E51.2 Tremor R25.1 ETOH abuse F10.10 Time Spent (min) 70
[2025-02-06] MEDS: PROPRANOLOL HCL 20 MG TAB PO SCH (09:29)
--- NOTE | 2025-02-06 09:42 | Hospitalist Progress Note ---
Date of Service February 06, 2025 Assessment & Plan (1) AMS (altered mental status): Plan: -pt states he took additional anxiety medications today and now feels back to baseline -treatment for possible Werneke's encephalopathy -IVF -thiamine 500mg IV TID -folic acid -PT/OT -valium prn for behavioral agitation -neurology consult appreciated -MRI negative -Propranolol increased to 60mg Daily for treatment of tremors -pt medically cleared to return to [facility], will arranged with lynn forde (2) ETOH abuse: Plan: -pt states last drink on Thursday -From [facility], states he's been out of withdrawal since -excessive tremors make it difficult to confirm if he is not in acute withdrawal at this time -will keep on CIWA -valium prn for agitiation -no evidence of acute withdrawal (3) Anxiety and depression: Plan: -mirtazapine (4) Hypertension: Plan: -labetalol Plan Heparin SQ for DVT px Admission and Anticipated Discharge Date Admission Date: February 04, 2025 Subjective No events overnight. Pt resting in bed denies any hallucinations, feels much bet ter today. Review of Systems Review of Systems: CONST: Negative for fever, body aches and chills. HENT: Negative for neck pain/stiffness, headache, congestion, sore throat, swelling. EYES: Negative for discharge/pain or vision changes. RESP: Negative for cough/hemoptysis and shortness of breath. CV: Negative chest pain, difficulty breathing, palpitations. ABD: Negative pain, nausea, vomiting. : Negative increase frequency, dysuria, blood in urine or stool. MUSC: Negative for muscle aches, edema. SKIN: Negative rash, lesions/sores. NEURO: Negative headache, dizziness, weakness +tremor. Physical Exam Physical Exam: GENERAL APPEARANCE NAD, activity normal for age, well developed/ well nourished, no cyanosis, pallor, or diaphoresis. EYES lids/conjunctiva normal. EARS/NOSE/THROAT Mucous membranes moist, nares normal, lips/teeth normal uvula midline without oral pharyngeal erythema, exudate or swelling TMs normal bilaterally. No lymphangitis/lymphedema. HEAD/NECK normocephalic atraumatic, no facial trauma, neck is supple. RESPIRATORY respiratory effort normal, speaks in full sentences, no tripod position, no accessory muscle use. Lungs clear to auscultation without rhonchi, wheezes, rales CARDIAC Regular rate and rhythm, no edema. ABDOMINAL Soft, ND/NT. No evidence of fluid wave. No pulsatile masses on exam, rebound tenderness, Gonzalez sign or pain over Mcburney's point. MUSCLES/EXTREMITIES No abnormal range of motion, no swelling. SKIN Warm, pink and dry. No rashes, dermatoses, petechiae or lesions. NEUROLOGICAL Speech is clear and appropriate. Normal level of consciousness. Gait and coordination are normal. 5/5 strength in all extremities. PSYCH Normal mood and affect. Judgement/competence is appropriate Results & Data Results & Data Vital Signs (Past 12 Hours) Vital Signs Temp Pulse Pulse Resp BP BP Pulse Ox 02/06/25 07:32 36.5 C 72 20 140/76 97 02/06/25 07:10 63 02/06/25 00:10 36.7 C 70 16 121/81 99 O2 Del Method 02/06/25 07:32 Room Air 02/06/25 07:10 02/06/25 00:10 Room Air PG Care Time/CCT Total # of Minutes Spent Total Time Spent with Patient: Total time spent is greater than 50% in coordination of care (as documented) at patient's floor/unit and/or counseling patient: Coding Level of Care Code 03104 SUB INP/OBS CARE 2/35MIN Diagnoses Altered mental status, unspecified altered mental status type R41.82 Altered mental status type: unspecified ETOH abuse F10.10 Anxiety and depression F41.9; F32.A Hypertension I10 (1) AMS (altered mental status) Altered mental status type: unspecified Qualified Code(s): R41.82 - Altered mental status, unspecified
[2025-02-06 10:40] VITALS: PULSE 64; TEMP 97.5; O2SAT 100
[2025-02-06] MEDS ORDERED: IBUPROFEN 600 MG TAB PO PRN (11:43)
[2025-02-06] MEDS: COLCHICINE 0.6 MG TAB PO ONE (11:59)
--- NOTE | 2025-02-06 13:58 | Discharge Summary ---
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 -IVF -thiamine 500mg IV TID -folic acid -PT/OT -valium prn for behavioral agitation -neurology consult appreciated -MRI negative -Propranolol increased to 60mg Daily for treatment of tremors -pt medically cleared to return to [facility], will arranged with lynn forde (2) ETOH abuse: -pt states last drink on Thursday -From [facility], states he's been out of withdrawal since -excessive tremors make it difficult to confirm if he is not in acute withdrawal at this time -will keep on CIWA -valium prn for agitiation -no evidence of acute withdrawal (3) Anxiety and depression: -mirtazapine (4) Hypertension: -labetalol Plan Heparin SQ for DVT px Admission HPI Per Admitting Provider Pt is a 54 y/o male with PMH of etoh abuse, anxiety, HTN, presents from [facility] rehab due to increased tremors and confusion. Pt states he took additional doses of his anixety medications this am which caused him to become confused. Pt was noted by staff to be having visual hallucinations. Pt states he has had upper extremity tremors for about 10 or 15 years but may be worse within the last year. States that he does have a follow-up with Dr. Ni next week. In the ER his CT head was negative. Pt states his last drink was on Thursday, and he has been out of withdrawal since Thursday. Pt requesting transfer back to [facility] if he will be accepted. [facility] case management awaiting call back to confirm acceptance. 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 Discharge Exam GENERAL APPEARANCE NAD, activity normal for age, well developed/ well nourished, no cyanosis, pallor, or diaphoresis. EYES lids/conjunctiva normal. EARS/NOSE/THROAT Mucous membranes moist, nares normal, lips/teeth normal uvula midline without oral pharyngeal erythema, exudate or swelling TMs normal bilaterally. No lymphangitis/lymphedema. HEAD/NECK normocephalic atraumatic, no facial trauma, neck is supple. RESPIRATORY respiratory effort normal, speaks in full sentences, no tripod position, no accessory muscle use. Lungs clear to auscultation without rhonchi, wheezes, rales CARDIAC Regular rate and rhythm, no edema. ABDOMINAL Soft, ND/NT. No evidence of fluid wave. No pulsatile masses on exam, rebound tenderness, Gonzalez sign or pain over Mcburney's point. MUSCLES/EXTREMITIES No abnormal range of motion, no swelling. SKIN Warm, pink and dry. No rashes, dermatoses, petechiae or lesions. NEUROLOGICAL Speech is clear and appropriate. Normal level of consciousness. Gait and coordination are normal. 5/5 strength in all extremities. PSYCH Normal mood and affect. Judgement/competence is appropriate Discharge Plan Discharge Items Reason For Visit: AMS Discharge Diagnosis: tremors,acute confusion Condition on Discharge: Good Activity: Resume your previous activity Non-emergency contact: Primary Care Provider Call non-emergency contact if: you have any medication questions Follow-up/Referrals: PCP,NO [Primary Care Provider] - Diet: Regular Addtl Attending Provider Instructions: Follow up with neurology as out patient Pending Studies at Discharge: No Stand-Alone Forms: My [employer], Smoking Cessation Medications and DC Order Prescriptions: New propranolol 60 mg Capsule,Extended Release 24 Hr 60 mg PO DAILY Qty: 30 0RF ibuprofen 600 mg Tablet 600 mg PO Q8H PRN (Reason: pain) Qty: 30 0RF thiamine HCl (vitamin B1) 100 mg capsule 100 mg PO DAILY Qty: 30 0RF folic acid 1 mg tablet 1,000 mcg PO DAILY Qty: 30 0RF Continued labetalol 100 mg tablet 100 mg PO BID Qty: 60 5RF mirtazapine 15 mg tablet 15 mg PO DAILY Discontinued propranolol 10 mg tablet 10 mg PO DAILY Admission Data Admit Date/Time: 02/04/25 17:03 Attending Provider: Timmy Rebolledo Admit Provider: Timmy Rebolledo Primary Care Provider: PCP,NO Other Providers: Timmy Rebolledo; [facility] Stay Data Consultations 02/04/25 16:33 ED Decision to Admit Stat 02/05/25 10:53 Consult Neurology Routine Diagnostic Imagining Performed 02/04/25 14:42 CT head/brain wo con Stat 02/05/25 20:05 MRI Brain [MR brain wo/w con] Routine Pending Results Patient Have Any Pending Studies at Discharge: No Discharge Instructions Given to Patient (Per Discharging Provider) Follow up with neurology as out patient Total Time Total Time Spent Total Time Spent (In Minutes): 50 Coding Level of Care Code 15604 INP/OBS DISCH >30 MIN Diagnoses Altered mental status, unspecified altered mental status type R41.82 Altered mental status type: unspecified ETOH abuse F10.10 Anxiety and depression F41.9; F32.A Hypertension I10
[2025-02-06 14:01] VITALS: BP 140/76
[2025-02-07] MEDS ORDERED: PROPRANOLOL HCL 60 MG LA CAP PO SCH (09:00)
== END 2025-02-06 14:59 | disposition alcohol treatment (31) | DRG 641 ==
LOC: ED 14:26 → 2E 17:03